=== PATIENT | female | born 1980 | race Caucasian/White ===

== ENCOUNTER 2017-02-14 07:21 | Day surgery (SDC) | payer OTHER ==
[2017-02-14 07:43] VITALS: BMI 29.2
[2017-02-14] MEDS ORDERED: SCOPOLAMINE HYDROBROMIDE 1 PATCH PATCH.TD72 ONE (08:31)
[2017-02-14] MEDS ORDERED: SUCCINYLCHOLINE CHLORIDE 200 MG/10 ML VIAL ONE (08:49)
[2017-02-14] MEDS ORDERED: MIDAZOLAM HCL 2 MG/2 ML SINGLE DOSE VIAL ONE (08:49)
[2017-02-14] MEDS ORDERED: PROPOFOL 20 ML ONE ×2 (08:49)
[2017-02-14] MEDS ORDERED: ONDANSETRON 4 MG/2 ML VIAL ONE ×2 (08:51→09:29)
[2017-02-14] MEDS ORDERED: DEXAMETHASONE SOD PHOSPHATE 4 MG/1 ML VIAL ONE ×2 (08:51→09:29)
[2017-02-14] MEDS ORDERED: KETOROLAC TROMETHAMINE 30 MG/1 ML VIAL ONE (08:51)
[2017-02-14] MEDS ORDERED: LIDOCAINE HCL/PF 2% SDV 5ML VIAL ONE (08:51)
[2017-02-14] MEDS ORDERED: ceFAZolin SODIUM 1 GM VIAL ONE (08:51)
[2017-02-14] MEDS ORDERED: ESTROGENS,CONJUGATED 25 MG VIAL IVPB ONE (11:35)
[2017-02-14] MEDS ORDERED: ONDANSETRON 4 MG/2 ML VIAL IVPUSH PRN ×2 (11:35→11:53)
[2017-02-14] MEDS ORDERED: IBUPROFEN 600 MG TABLET (FP) PO PRN (11:35)
[2017-02-14] MEDS ORDERED: WATER FOR INJ,STERILE 10 ML ONE (11:38)
[2017-02-14] MEDS ORDERED: LACTATED RINGERS SOLUTION 1,000 ML IV SCH (11:45)
[2017-02-14] MEDS ORDERED: oxyCODONE HCL 5 MG TABLET PO PRN ×2 (11:54)
--- NOTE | 2017-02-14 12:04 | OP ---
DATE OF OPERATION: 02/14/2017 PREOPERATIVE DIAGNOSIS: Submucosal fibroid. POSTOPERATIVE DIAGNOSIS: Submucosal fibroid and endometrial polyps. PROCEDURE: Hysteroscopic myomectomy and polypectomy, as well as a dilatation and suction curettage. SURGEON: Dr. Janes Daniel. MACHINE LACER: Dr. Eber Morales, fellow, and also resident, Dr. Paul Pereyra. FINDINGS: On pelvic exam, the patient has a very large, bulky uterus, approximately 18 weeks size, anteverted. Hysteroscopically, there was an approximately 1-2-cm fibroid anterior and multiple polyps throughout the cavity as well as within the vicinity of the right cornua. COMPLICATIONS: None. FLUID DEFICIT: Normal saline, 1000 mL. URINE OUTPUT: 500 mL. FLUID IN: Crystalloid, 1000 mL. PROCEDURE FOLLOWS: The patient was taken to the operating room where general anesthesia was found to be adequate. She was placed in the dorsal lithotomy position, prepped and draped in normal sterile fashion. A pelvic exam revealed the above findings. We proceeded by putting in a speculum into the patients vagina, and the anterior lip of the cervix was grasped with a single-tooth tenaculum. Cervix was then serially dilated in order to fit a diagnostic hysteroscope. The hysteroscope was inserted, and at that time, visualization of multiple polyps as well as the anterior fibroid was seen. We removed the hysteroscope and switched to a 4-mm scope. Using a 30-degree resectoscope sheath, we inserted the resectoscope into the endometrial cavity and proceeded with the resection of the anterior fibroid. This was done using multiple sweeps and electrocautery. We then removed the resectoscope and carefully removed all of the remaining pieces of fibroid strips that were floating in the cavity. Then, we used our resectoscope to go back into the endometrial cavity until we were able to visualize the polyps which were near the patients right cornua. These were also removed with the resectoscope. We then removed the resectoscope, and we inserted a suction curette in order to remove the remaining pieces of the fibroid strips. This was done successfully, and all of the remnants of the fibroid and endometrium and polyps were sent to Pathology. We took one last look using the resectoscope, and it appeared that the entire fibroid was removed as well as the remaining polyps. This ended the procedure. All instruments were removed from the vagina. Sponge, lap, and instrument counts were correct x2. A pediatric Wooten balloon was placed intrauterine at the end of the procedure and instilled with approximately 3-4 mL of normal saline in order to prevent the cavity from adhering back together, and the patient was placed on oral estrogens and progestin later in the cycle again in order to prevent adhesions. The patient was stable and was taken to the recovery room at the end of the procedure. This operative note was completed by Dr. Eber Morales. JANES DANIEL M.D. [id number]
[2017-02-14 12:46] VITALS: TEMP 98.8
[2017-02-14 13:16] VITALS: BP 116/79; PULSE 82
--- NOTE | 2017-02-20 15:35 | PATH ---
Surgical Pathology Report Patient Name: YESS[facility]. Rec. #: [id number] /Age/Gender: 1980 (Age: 36) / F Account: [id number] Location: [facility] Taken: 02/14/2017 Received: 02/14/2017 Reported: 02/20/2017 Physicians: Elia Daniel M.D. Specimen(s) Received FIBROIDS AND CURRETINGS Clinical History Myoma, fibroids Final Diagnosis FIBROIDS, CURETTAGE AND HYSTEROSCOPIC MYOMECTOMY: FRAGMENTS OF LEIOMYOMA(S); WEIGHT: 3 GRAMS. PROLIFERATIVE ENDOMETRIUM. BENIGN ENDOCERVICAL GLANDULAR TISSUE. Electronically Signed Ashley Beauchamp M.D. Gross Description Received in formalin labeled "fibroids and curettings," is a 3 g, 4.3 x 3.2 x 0.4 cm aggregate of multiple yates, irregular, firm to rubbery tissue fragments admixed with blood clot. The formalin is filtered and the specimen is entirely submitted in 3 cassettes. /02/14/2017 saudi/02/14/2017
== END 2017-02-14 13:15 | disposition home or self-care (01) ==
LOC: FASU 07:21
PROVIDERS: ATTEND Obstetrics & Gynecology Reproductive Endocrinology
PROC: 0UDB8ZX Extraction of Endometrium, Via Natural or Artificial Opening Endoscopic, Diagnostic (ICD-10-PCS; 2017-02-14)
PROC: 0UB98ZX Excision of Uterus, Via Natural or Artificial Opening Endoscopic, Diagnostic (ICD-10-PCS; principal; 2017-02-14 09:38)
DX: D25.0 Submucous leiomyoma of uterus (principal); N84.0 Polyp of corpus uteri
CPT/HCPCS: 84703; 88305-TC; 94760; J1410